=== PATIENT | male | born 1995 | race African-American/Black ===

== ENCOUNTER 2016-12-21 18:36 | Observation (INO) ==
[2016-12-21] MEDS ORDERED: ONDANSETRON 4 MG/2 ML VIAL IV STA (19:10)
[2016-12-21] MEDS ORDERED: HYDROmorphone 2 MG/1 ML VIAL IV STA (19:10)
[2016-12-21] MEDS ORDERED: ONDANSETRON 4 MG/2 ML VIAL ONE (19:12)
[2016-12-21] MEDS ORDERED: HYDROmorphone 2 MG/1 ML VIAL ONE (19:12)
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
[2016-12-21 20:54] LABS: Basophils % 0.2 % (0.0-0.8); Eosinophils # 0.2 10*3/uL (0.0-0.87); Eosinophils % 1.2 % (0.00-10.9); Hematocrit 40.9 VOL% (42.0-52.0); Hemoglobin 13.9 GM/DL (14.0-18.0); Immature Granulocytes % 0.5 %; Immature Granulocytes Absolute 0.06 #; Lymphocytes # 1.6 10*3/uL (1.4-4.0); Lymphocytes % 12.8 % (21.2-54.2); Mean Corpuscular Hemoglobin 30 PG (27-34); Mean Corpuscular Volume 86.8 FL (87-102); Mean Platelet Volume 10.5 FL (9.6-12.0); Monocytes # 0.7 10*3/uL (0.11-0.8); Monocytes % 5.9 % (1.7-12.7); Neutrophils # 9.8 10*3/uL (1.4-7.4); Neutrophils % 79.4 % (38.7-73.9); Platelet Count 169 T/CUMM (130-400); Red Blood Count 4.71 MC/CUMM (3.8-5.5); Red Cell Distribution Width 13.2 % (9.3-17.3); White Blood Count 12.4 T/CUMM (4-12)
[2016-12-21] MEDS ORDERED: ACETAMINOPHEN 325 MG TABLET PO PRN (21:00)
[2016-12-21] MEDS ORDERED: MORPHINE 2 MG/1 ML SYRINGE IV PRN (21:00)
[2016-12-21] MEDS ORDERED: ONDANSETRON 4 MG/2 ML VIAL IV PRN (21:00)
[2016-12-21 21:03] LABS: INR 1.1; PT Patient Result 11.6 SECS; Partial Thromboplastin Time 25.3 SECS (0-40)
[2016-12-21 21:08] LABS: Albumin 4.4 G/DL (3.4-5.0); Bilirubin,Total 0.5 MG/DL (0.2-1.0); Calcium 9.2 MG/DL (8.5-10.1); Potassium 3.6 MMOL/L (3.5-5.1); Total Protein 7.3 G/DL (6.4-8.3)
[2016-12-21 21:34] LABS: Apearance,Urine CLEAR (Clear); Bilirubin,Urine Negative (Negative); Blood, Urine Small mg/dL (Negative); Glucose,Urine (UA) Negative (Negative); Hyaline Casts,Urine 3 /LPF (0-3); Ketones,Urine 20 mg/dL (Negative); Mucus,Urine Occasional /LPF (Occasional); Nitrite,Urine Negative (Negative); Protein,Urine Negative; RBC,Urine 19 /HPF (0-4); Squamous Epithelial Cell,Urine Occasional /HPF (0-10); Urine Color Straw (Yellow); Urine Specific Gravity 1.038 (1.001-1.035); Urine Urobilinogen < 2.0 EU/DL (0.2-1.0)
[2016-12-21 21:47] LABS: Barbiturates Screen,Urine Negative (Negative); Benzodiazepines Screen,Urine Negative (Negative); Cannabinoid Screen,Urine Positive (Negative); Opiate Screen,Urine Positive (Negative); Phencyclidine Screen,Urine Negative (Negative)
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
[2016-12-22] MEDS ORDERED: DIAZEPAM 5 MG TABLET PO ONE (08:41)
[2016-12-22] MEDS ORDERED: FAMOTIDINE 20 MG TABLET PO ONE (08:41)
[2016-12-22] MEDS ORDERED: PANTOPRAZOLE 40 MG TABLET PO SCH (09:00)
[2016-12-22] MEDS ORDERED: LACTATED RINGERS 1,000 ML IV SCH (09:00)
[2016-12-22] MEDS: LACTATED RINGERS 1,000 ML IV SCH ×2 (09:57→10:07)
[2016-12-22] MEDS ORDERED: LIDOCAINE 2%/EPI 20 ML VIAL ONE (10:21)
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
[2016-12-22] MEDS ORDERED: ONDANSETRON 4 MG/2 ML VIAL ONE (10:38)
[2016-12-22] MEDS ORDERED: PROPOFOL 200 MG/20 ML VIAL IV ONE (10:38)
[2016-12-22] MEDS ORDERED: LIDOCAINE 2% 5 ML VIAL ONE (10:38)
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
[2016-12-22] MEDS ORDERED: MUPIROCIN 2% OINT 22 GM TUBE TOP ONE (11:04)
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
[2016-12-22] MEDS ORDERED: MIDAZOLAM 2 MG/2 ML VIAL ONE (11:24)
[2016-12-22] MEDS ORDERED: fentaNYL 100 MCG/2 ML VIAL ONE (11:25)
[2016-12-22 12:01] VITALS: BP 111/62
--- NOTE | 2016-12-22 14:33 | Anesthesia ---
Anesthesia Post OP - Post Ansesthetic Evaluation Patient seen in post op: Yes Resp: within normal limits CV: within normal limits Mental: within normal limits Temp: within normal limits [place]: within normal limits Nausea and Vomiting: within normal limits Pain: within normal limits
== END 2016-12-22 14:16 | disposition home or self-care (01) ==
LOC: EDBD → EDUNIT# → N.EDINP 18:36 → N.ED 18:36 → N.3E 21:36
PROVIDERS: ADMIT Surgery; ATTEND Surgery

== ENCOUNTER 2021-03-11 18:18 | Observation (INO) ==
[2021-03-11] MEDS ORDERED: SODIUM CHLORIDE 0.9% 1,000 ML IV STA (19:48)
[2021-03-11] MEDS ORDERED: ONDANSETRON 4 MG/2 ML VIAL IV STA (19:49)
[2021-03-11 20:26] LABS: Basophils % 0.3 % (0.0-0.8); Hematocrit 36.2 VOL% (42.0-52.0); Hemoglobin 12.3 GM/DL (14.0-18.0); Immature Granulocytes % 0.9 %; Immature Granulocytes Absolute 0.03 #; Lymphocytes # 0.7 10*3/uL (1.4-4.0); Lymphocytes % 21.1 % (21.2-54.2); Mean Corpuscular Volume 83.8 FL (87-102); Mean Platelet Volume 10.8 FL (9.6-12.0); Neutrophils % 75.7 % (38.7-73.9); Platelet Count 162 T/CUMM (130-400); Red Blood Count 4.32 MC/CUMM (3.8-5.5); Red Cell Distribution Width 13.3 % (9.3-17.3); White Blood Count 3.5 T/CUMM (4-12)
[2021-03-11 20:45] LABS: Albumin 3.4 G/DL (3.4-5.0); Bilirubin,Total 0.4 MG/DL (0.2-1.0); Calcium 8.6 MG/DL (8.5-10.1); Osmolality,Calculated 257.9 MOS/KG (273-304); Potassium 3.9 MMOL/L (3.5-5.1)
[2021-03-11] MEDS ORDERED: BISACODYL 5 MG TABLET PO PRN (23:04)
[2021-03-11] MEDS ORDERED: diphenhydrAMINE CAP 25 MG CAPSULE PO PRN (23:04)
[2021-03-11] MEDS ORDERED: DEXTROSE 50% 25 GM/50 ML VIAL IV PRN (23:04)
[2021-03-11] MEDS ORDERED: NICOTINE 21 MG/24 HR PATCH TRANSDERM PRN (23:04)
[2021-03-11] MEDS ORDERED: GLUCAGON 1 MG VIAL IM PRN (23:04)
[2021-03-11] MEDS ORDERED: ZALEPLON 5 MG CAPSULE PO PRN (23:04)
[2021-03-11] MEDS ORDERED: hydrALAZINE 20 MG/1 ML VIAL IV PRN (23:04)
[2021-03-11] MEDS ORDERED: guaiFENesin/DM ER 600-30 MG TABLET PO PRN (23:04)
[2021-03-12] MEDS: PIPERACILLIN/TAZOBACTAM 3,375 MG in SODIUM CHLORIDE 0.9% 100 ML IV SCH ×3 (00:35→15:48)
[2021-03-12] MEDS: SODIUM CHLORIDE 0.9% 1,000 ML IV SCH ×3 (00:35→22:26)
[2021-03-12] MEDS: ALBUTEROL 2.5 MG/3 ML NEB RESP TX SCH ×4 (01:39→20:18)
[2021-03-12] MEDS: ONDANSETRON 4 MG/2 ML VIAL IV PRN ×2 (04:10→22:12)
[2021-03-12 04:32] LABS: Basophils % 0.3 % (0.0-0.8); Hematocrit 33.9 VOL% (42.0-52.0); Hemoglobin 11.7 GM/DL (14.0-18.0); Immature Granulocytes % 0.6 %; Immature Granulocytes Absolute 0.02 #; Lymphocytes # 0.9 10*3/uL (1.4-4.0); Lymphocytes % 28.7 % (21.2-54.2); Mean Corpuscular HGB Conc 34.5 GM/DL (32-36); Mean Corpuscular Volume 83.7 FL (87-102); Monocytes % 3.7 % (1.7-12.7); Neutrophils % 66.7 % (38.7-73.9); Platelet Count 150 T/CUMM (130-400); Red Blood Count 4.05 MC/CUMM (3.8-5.5); Red Cell Distribution Width 13.2 % (9.3-17.3); White Blood Count 3.3 T/CUMM (4-12)
[2021-03-12 04:52] LABS: Albumin 3.1 G/DL (3.4-5.0); Bilirubin,Total 0.6 MG/DL (0.2-1.0); Calcium 8.3 MG/DL (8.5-10.1); Osmolality,Calculated 261.5 MOS/KG (273-304); Total Protein 6.4 G/DL (6.4-8.2)
[2021-03-12 05:34] LABS: Band Neutrophils 18 % (0-10); Hypochromasia 1+; Lymphocytes 27 % (20-55); Microcytosis 1+; Segmented Neutrophils 52 % (50-85); Total Cells Counted 100
[2021-03-12 05:35] LABS: Ovalocytes Slight; Platelet Estimate Adequate
[2021-03-12] MEDS: ACETAMINOPHEN 325 MG TABLET PO PRN (08:46)
[2021-03-12] MEDS: ENOXAPARIN 40 MG/0.4 ML SYRINGE SUBCUT SCH (08:47)
[2021-03-13] MEDS: ALBUTEROL 2.5 MG/3 ML NEB RESP TX SCH ×3 (00:56→15:26)
[2021-03-13] MEDS: PIPERACILLIN/TAZOBACTAM 3,375 MG in SODIUM CHLORIDE 0.9% 100 ML IV SCH ×2 (01:01→09:52)
[2021-03-13 04:56] LABS: Basophils % 0.3 % (0.0-0.8); Hematocrit 31.1 VOL% (42.0-52.0); Hemoglobin 10.9 GM/DL (14.0-18.0); Immature Granulocytes % 1.2 %; Immature Granulocytes Absolute 0.04 #; Lymphocytes # 0.9 10*3/uL (1.4-4.0); Lymphocytes % 28.5 % (21.2-54.2); Mean Corpuscular Volume 83.8 FL (87-102); Mean Platelet Volume 10.8 FL (9.6-12.0); Monocytes % 2.8 % (1.7-12.7); Neutrophils % 67.2 % (38.7-73.9); Platelet Count 121 T/CUMM (130-400); Red Blood Count 3.71 MC/CUMM (3.8-5.5); Red Cell Distribution Width 13.5 % (9.3-17.3); White Blood Count 3.2 T/CUMM (4-12)
[2021-03-13 05:21] LABS: Calcium 8.1 MG/DL (8.5-10.1); Osmolality,Calculated 262.4 MOS/KG (273-304); Potassium 3.6 MMOL/L (3.5-5.1)
[2021-03-13 05:41] LABS: Band Neutrophils 5 % (0-10); Lymphocytes 28 % (20-55); Segmented Neutrophils 64 % (50-85); Total Cells Counted 100
[2021-03-13 05:42] LABS: Platelet Estimate Normal
[2021-03-13] MEDS: SODIUM CHLORIDE 0.9% 1,000 ML IV SCH (06:30)
[2021-03-13] MEDS: ACETAMINOPHEN 325 MG TABLET PO PRN ×2 (08:00→14:09)
[2021-03-13] MEDS: ENOXAPARIN 40 MG/0.4 ML SYRINGE SUBCUT SCH (09:52)
[2021-03-13 11:36] VITALS: BP 115/68
[2021-03-15 11:43] LABS: EBV Nuclear Ag Antibody Positive (Negative); EBV Virus IgG Ab Positive (Negative); EBV Virus IgM Ab Negative (Negative)
== END 2021-03-13 16:49 | disposition home or self-care (01) ==
LOC: N.EDINP 18:18 → N.ED 18:18 → SUATTDRO 23:04 → N.4E 23:21
PROVIDERS: ADMIT Internal Medicine; ATTEND Student in an Organized Health Care Education/Training Program

== ENCOUNTER 2022-07-23 10:38 | Inpatient (IN) ==
[2022-07-23 12:24] LABS: Basophils # 0.1 10*3/uL (0.0-0.2); Basophils % 0.2 % (0.0-0.8); Hematocrit 27.9 VOL% (42.0-52.0); Hemoglobin 9.6 GM/DL (14.0-18.0); Immature Granulocytes Absolute 0.72 #; Lymphocytes # 2.3 10*3/uL (1.4-4.0); Lymphocytes % 6.4 % (21.2-54.2); Mean Corpuscular HGB Conc 34.4 GM/DL (32-36); Mean Corpuscular Volume 78.6 FL (87-102); Mean Platelet Volume 10.9 FL (9.6-12.0); Monocytes # 0.8 10*3/uL (0.11-0.8); Monocytes % 2.3 % (1.7-12.7); Neutrophils % 89.1 % (38.7-73.9); Platelet Count 290 T/CUMM (130-400); Red Blood Count 3.55 MC/CUMM (3.8-5.5); Red Cell Distribution Width 13.8 % (9.3-17.3); White Blood Count 35.5 T/CUMM (4-12)
[2022-07-23 12:36] LABS: PT Patient Result 11.4 SECS (10.1-12.1); Partial Thromboplastin Time 46.9 SECS (23.7-32.9)
[2022-07-23 12:48] LABS: Band Neutrophils 13 % (0-10); Lymphocytes 4 % (20-55); Platelet Estimate Normal; Total Cells Counted 100
[2022-07-23 12:49] LABS: Albumin 1.8 G/DL (3.4-5.0); Anisocytosis 1+; Bilirubin,Total 0.8 MG/DL (0.20-1.00); Calcium 8.1 MG/DL (8.5-10.1); Hypochromia Slight; Macrocytosis Slight; Osmolality,Calculated 291.1 MOS/KG (273-304); Potassium 3.9 MMOL/L (3.5-5.1); Total Protein 8.1 G/DL (6.4-8.2)
[2022-07-23] MEDS ORDERED: cefTRIAXone 1,000 MG in SODIUM CHLORIDE 0.9% 100 ML IV STA (13:01)
[2022-07-23] MEDS ORDERED: AZITHROMYCIN INJ 500 MG in SODIUM CHLORIDE 0.9% 250 ML IV STA (13:01)
[2022-07-23] MEDS ORDERED: LACTATED RINGERS 500 ML IV ONE (13:02)
[2022-07-23] MEDS ORDERED: ACETAMINOPHEN 325 MG TABLET PO ONE (13:50)
[2022-07-23] MEDS ORDERED: guaiFENesin/DM ER 600-30 MG TABLET PO PRN (13:55)
[2022-07-23] MEDS ORDERED: ONDANSETRON 4 MG/2 ML VIAL IV PRN (13:55)
[2022-07-23] MEDS ORDERED: MORPHINE 2 MG/1 ML SYRINGE IV PRN (13:55)
[2022-07-23] MEDS ORDERED: ACETAMINOPHEN 325 MG TABLET PO PRN (13:55)
[2022-07-23] MEDS ORDERED: ALBUTEROL 2.5 MG/3 ML NEB RESP TX PRN (13:55)
[2022-07-23] MEDS ORDERED: LACTATED RINGERS 1,500 ML IV ONE (13:57)
[2022-07-23] MEDS ORDERED: AZITHROMYCIN INJ 500 MG in SODIUM CHLORIDE 0.9% 250 ML IV SCH (14:00)
[2022-07-23] MEDS ORDERED: LORazepam 2 MG/1 ML VIAL IV PRN (14:34)
[2022-07-23 15:24] LABS: Bacteria,Urine Occasional /HPF (Few); Bilirubin,Urine Negative (Negative); Blood, Urine Large mg/dL (Negative); Glucose,Urine (UA) Negative (Negative); Granular Casts,Urine 4 /LPF (0-1); Hyaline Casts,Urine 12 /LPF (0-3); Ketones,Urine Negative (Negative); Mucus,Urine Occasional /LPF (Occasional); Nitrite,Urine Negative (Negative); Protein,Urine 100 mg/dL (Negative); RBC,Urine 284 /HPF (0-4); Squamous Epithelial Cell,Urine Occasional /HPF (0-10); Urine Appearance CLOUDY (Clear); Urine Color Amber (Yellow); Urine Specific Gravity 1.012 (1.001-1.035); Urine Urobilinogen < 2.0 eU/dL (<2.0)
[2022-07-23] MEDS: CEFEPIME 1,000 MG in SODIUM CHLORIDE 0.9% 100 ML IV SCH (16:13)
[2022-07-23] MEDS: SODIUM CHLORIDE 0.9% 1,000 ML IV SCH ×2 (16:13→22:54)
[2022-07-23] MEDS ORDERED: INFLUENZA VIRUS VACCINE 0.5 ML SYRINGE IM ONE (21:00)
[2022-07-23] MEDS: ENOXAPARIN 30 MG/0.3 ML SYRINGE SUBCUT SCH (22:17)
[2022-07-24] MEDS: CEFEPIME 1,000 MG in SODIUM CHLORIDE 0.9% 100 ML IV SCH ×2 (04:50→20:34)
[2022-07-24] MEDS: SODIUM CHLORIDE 0.9% 1,000 ML IV SCH ×3 (05:08→16:31)
[2022-07-24 05:29] LABS: Basophils # 0.1 10*3/uL (0.0-0.2); Basophils % 0.2 % (0.0-0.8); Eosinophils % 0.1 % (0.00-10.9); Hematocrit 24.6 VOL% (42.0-52.0); Hemoglobin 8.4 GM/DL (14.0-18.0); Immature Granulocytes % 4.4 %; Lymphocytes # 2.3 10*3/uL (1.4-4.0); Lymphocytes % 6.8 % (21.2-54.2); Mean Corpuscular HGB Conc 34.1 GM/DL (32-36); Mean Corpuscular Volume 78.6 FL (87-102); Mean Platelet Volume 10.8 FL (9.6-12.0); Monocytes # 0.7 10*3/uL (0.11-0.8); Monocytes % 2.1 % (1.7-12.7); Neutrophils % 86.4 % (38.7-73.9); Platelet Count 275 T/CUMM (130-400); Red Blood Count 3.13 MC/CUMM (3.8-5.5); Red Cell Distribution Width 13.7 % (9.3-17.3); White Blood Count 34.4 T/CUMM (4-12)
[2022-07-24 05:55] LABS: Albumin 1.3 G/DL (3.4-5.0); Bilirubin,Total 0.7 MG/DL (0.20-1.00); Calcium 7.7 MG/DL (8.5-10.1); Osmolality,Calculated 300.2 MOS/KG (273-304); Potassium 3.8 MMOL/L (3.5-5.1)
[2022-07-24 06:04] LABS: Band Neutrophils 1 % (0-10); Hypochromia Slight; Lymphocytes 3 % (20-55); Microcytosis Slight; Platelet Estimate Adequate; Total Cells Counted 100
[2022-07-24 06:30] LABS: Hepatitis B Surface Ab Result Non-Reactive (NonReactive); Hepatitis B Surface Ag Quant < 0.10 Index; Hepatitis B Surface Ag Result Non-Reactive (NonReactive); Hepatitis C Virus Ab Quant 0.15 Index; Hepatitis C Virus Ab Result Non-Reactive (NonReactive)
[2022-07-24] MEDS: PANTOPRAZOLE 40 MG TABLET PO SCH (09:33)
[2022-07-24] MEDS: AZITHROMYCIN INJ 500 MG in SODIUM CHLORIDE 0.9% 250 ML IV SCH (09:36)
[2022-07-24] MEDS: ENOXAPARIN 30 MG/0.3 ML SYRINGE SUBCUT SCH (20:33)
[2022-07-25 04:06] LABS: Basophils # 0.1 10*3/uL (0.0-0.2); Basophils % 0.2 % (0.0-0.8); Eosinophils # 0.2 10*3/uL (0.0-0.87); Eosinophils % 0.6 % (0.00-10.9); Hematocrit 23.3 VOL% (42.0-52.0); Immature Granulocytes % 4.2 %; Immature Granulocytes Absolute 1.15 #; Lymphocytes % 7.3 % (21.2-54.2); Mean Corpuscular HGB Conc 34.3 GM/DL (32-36); Mean Corpuscular Volume 79.5 FL (87-102); Mean Platelet Volume 10.5 FL (9.6-12.0); Monocytes # 0.9 10*3/uL (0.11-0.8); Monocytes % 3.3 % (1.7-12.7); Neutrophils % 84.4 % (38.7-73.9); Platelet Count 271 T/CUMM (130-400); Red Blood Count 2.93 MC/CUMM (3.8-5.5); Red Cell Distribution Width 14.1 % (9.3-17.3); White Blood Count 27.6 T/CUMM (4-12)
[2022-07-25 04:27] LABS: Albumin 1.3 G/DL (3.4-5.0); Bilirubin,Total 0.4 MG/DL (0.20-1.00); Calcium 7.7 MG/DL (8.5-10.1); Osmolality,Calculated 303.7 MOS/KG (273-304); Potassium 3.6 MMOL/L (3.5-5.1); Total Protein 6.9 G/DL (6.4-8.2)
[2022-07-25 04:37] LABS: Band Neutrophils 1 % (0-10); Eosinophils 1 % (0-10); Hypochromia Slight; Lymphocytes 4 % (20-55); Microcytosis Slight; Platelet Estimate Adequate; Total Cells Counted 100
[2022-07-25] MEDS: SODIUM CHLORIDE 0.9% 1,000 ML IV SCH ×4 (05:14→22:37)
[2022-07-25] MEDS: PANTOPRAZOLE 40 MG TABLET PO SCH (08:58)
[2022-07-25] MEDS: CEFEPIME 1,000 MG in SODIUM CHLORIDE 0.9% 100 ML IV SCH ×2 (08:58→16:27)
[2022-07-25] MEDS: AZITHROMYCIN INJ 500 MG in SODIUM CHLORIDE 0.9% 250 ML IV SCH (12:08)
[2022-07-25] MEDS ORDERED: BENZONATATE 100 MG CAPSULE PO PRN (16:48)
[2022-07-25] MEDS: methylPREDNISolone SOD SUC 40 MG/1 ML VIAL IV SCH (17:28)
[2022-07-25] MEDS: ALBUTEROL 1.25 MG/3 ML NEB RESP TX SCH ×3 (18:17→23:10)
[2022-07-25] MEDS ORDERED: VANCOMYCIN INJ 1,000 MG in SODIUM CHLORIDE 0.9% 250 ML IV SCH (19:30)
[2022-07-25] MEDS: ENOXAPARIN 40 MG/0.4 ML SYRINGE SUBCUT SCH (20:19)
[2022-07-26] MEDS: CEFEPIME 1,000 MG in SODIUM CHLORIDE 0.9% 100 ML IV SCH ×3 (01:25→16:19)
[2022-07-26] MEDS: methylPREDNISolone SOD SUC 40 MG/1 ML VIAL IV SCH ×3 (01:25→16:19)
[2022-07-26] MEDS: ALBUTEROL 1.25 MG/3 ML NEB RESP TX SCH ×6 (02:10→23:34)
[2022-07-26] MEDS: SODIUM CHLORIDE 0.9% 1,000 ML IV SCH (07:00)
[2022-07-26 07:06] LABS: Basophils % 0.1 % (0.0-0.8); Hematocrit 27.9 VOL% (42.0-52.0); Hemoglobin 9.2 GM/DL (14.0-18.0); Immature Granulocytes % 3.8 %; Immature Granulocytes Absolute 0.61 #; Lymphocytes # 1.4 10*3/uL (1.4-4.0); Lymphocytes % 8.5 % (21.2-54.2); Mean Corpuscular Volume 81.1 FL (87-102); Mean Platelet Volume 10.7 FL (9.6-12.0); Monocytes # 0.2 10*3/uL (0.11-0.8); Monocytes % 1.3 % (1.7-12.7); Neutrophils % 86.3 % (38.7-73.9); Platelet Count 319 T/CUMM (130-400); Red Blood Count 3.44 MC/CUMM (3.8-5.5); Red Cell Distribution Width 14.6 % (9.3-17.3)
[2022-07-26 07:17] LABS: Calcium 7.9 MG/DL (8.5-10.1); Osmolality,Calculated 301.3 MOS/KG (273-304); Potassium 4.5 MMOL/L (3.5-5.1)
[2022-07-26 07:19] LABS: Alanine Aminotransferase 42 U/L (16-61); Albumin 1.5 G/DL (3.4-5.0); Alkaline Phosphatase 102 U/L (45-117); Aspartate Amino Transferase 72 U/L (0-37); Bilirubin,Total < 0.39 MG/DL (0.20-1.00); Blood Urea Nitrogen 73 MG/DL (7-18); Calcium 8.3 MG/DL (8.5-10.1); Carbon Dioxide 21 MMOL/L (21-32); Chloride 111 MMOL/L (98-107); Glucose 143 MG/DL (74-106); Osmolality,Calculated 300.5 MOS/KG (273-304); Potassium 4.4 MMOL/L (3.5-5.1); Sodium 139 MMOL/L (136-145)
[2022-07-26 07:29] LABS: Hypochromia Slight; Lymphocytes 4 % (20-55); Microcytosis Slight; Platelet Estimate Adequate; Total Cells Counted 100
[2022-07-26 08:11] LABS: Hepatitis B Core IgM Quant 0.15 Index; Hepatitis B Surface Ag Quant < 0.10 Index; Hepatitis B Surface Ag Result Non-Reactive (NonReactive); Hepatitis C Virus Ab Result Non-Reactive (NonReactive)
[2022-07-26] MEDS: AZITHROMYCIN INJ 500 MG in SODIUM CHLORIDE 0.9% 250 ML IV SCH (08:44)
[2022-07-26] MEDS: PANTOPRAZOLE 40 MG TABLET PO SCH (08:46)
[2022-07-26 09:45] LABS: % Iron Saturation 45.5 % (18-50)
[2022-07-26 15:54] LABS: Barbiturates Screen,Urine Negative (Negative); Benzodiazepines Screen,Urine Negative (Negative); Cannabinoid Screen,Urine Negative (Negative); Opiate Screen,Urine Negative (Negative); Phencyclidine Screen,Urine Negative (Negative)
[2022-07-26] MEDS: ENOXAPARIN 40 MG/0.4 ML SYRINGE SUBCUT SCH (20:26)
[2022-07-27] MEDS: SODIUM CHLORIDE 0.9% 1,000 ML IV SCH ×2 (00:35→09:26)
[2022-07-27] MEDS: CEFEPIME 1,000 MG in SODIUM CHLORIDE 0.9% 100 ML IV SCH ×2 (01:25→08:54)
[2022-07-27] MEDS: methylPREDNISolone SOD SUC 40 MG/1 ML VIAL IV SCH ×2 (01:26→08:55)
[2022-07-27] MEDS: ALBUTEROL 1.25 MG/3 ML NEB RESP TX SCH ×3 (03:35→12:22)
[2022-07-27 05:12] LABS: Basophils % 0.1 % (0.0-0.8); Hematocrit 24.4 VOL% (42.0-52.0); Hemoglobin 8.1 GM/DL (14.0-18.0); Immature Granulocytes % 4.4 %; Immature Granulocytes Absolute 0.66 #; Lymphocytes # 1.8 10*3/uL (1.4-4.0); Lymphocytes % 11.9 % (21.2-54.2); Mean Corpuscular HGB Conc 33.2 GM/DL (32-36); Mean Corpuscular Volume 82.4 FL (87-102); Mean Platelet Volume 10.1 FL (9.6-12.0); Monocytes # 0.5 10*3/uL (0.11-0.8); Monocytes % 3.3 % (1.7-12.7); Neutrophils % 80.3 % (38.7-73.9); Platelet Count 290 T/CUMM (130-400); Red Blood Count 2.96 MC/CUMM (3.8-5.5); Red Cell Distribution Width 14.6 % (9.3-17.3); White Blood Count 15.1 T/CUMM (4-12)
[2022-07-27 05:32] LABS: Alanine Aminotransferase 38 U/L (16-61); Albumin 1.5 G/DL (3.4-5.0); Alkaline Phosphatase 81 U/L (45-117); Aspartate Amino Transferase 55 U/L (0-37); Bilirubin,Total < 0.39 MG/DL (0.20-1.00); Blood Urea Nitrogen 63 MG/DL (7-18); Carbon Dioxide 20 MMOL/L (21-32); Chloride 112 MMOL/L (98-107); Glucose 139 MG/DL (74-106); Osmolality,Calculated 296.5 MOS/KG (273-304); Potassium 4.6 MMOL/L (3.5-5.1); Sodium 139 MMOL/L (136-145); Total Protein 6.7 G/DL (6.4-8.2)
[2022-07-27 05:39] LABS: Band Neutrophils 1 % (0-10); Hypochromia 1+; Lymphocytes 11 % (20-55); Metamyelocytes 1 %; Myelocytes 1 %; Target Cells Slight; Total Cells Counted 100
[2022-07-27 05:40] LABS: Calcium 7.8 MG/DL (8.5-10.1); Microcytosis Slight; Osmolality,Calculated 299.3 MOS/KG (273-304); Ovalocytes Slight; Polychromasia Slight; Potassium 4.6 MMOL/L (3.5-5.1)
[2022-07-27] MEDS: PANTOPRAZOLE 40 MG TABLET PO SCH (08:55)
[2022-07-27] MEDS: AZITHROMYCIN INJ 500 MG in SODIUM CHLORIDE 0.9% 250 ML IV SCH (09:26)
[2022-07-27] MEDS ORDERED: CEFUROXIME 500 MG TABLET PO SCH (11:00)
[2022-07-27 12:14] VITALS: BP 132/97
[2022-07-27 14:26] LABS: Toxoplasma IgG Value < 3 IU/mL
[2022-07-27 22:31] LABS: % CD4 (T Cells) 9 % (32-64); % CD8 (T Cells) 68 % (18-40); 4/8 Ratio 0.1 (>=0.9)
[2022-07-28 12:11] LABS: CMV DNA Detect/Quant, P Undetected IU/mL (Undetected)
[2022-07-28 14:31] LABS: Fungitell Quantitative Value 45 pg/mL (<60 pg/mL)
[2022-07-28 21:36] LABS: Pneumocystis jiroveci Result Negative (Negative); Pneumocystis jiroveci Source SPUTUM
[2022-07-29 19:46] LABS: M. Tuberculosis PCR Result Negative (Negative); M. Tuberculosis PCR Source SPUTUM
[2022-07-31 10:21] LABS: % CD16+CD56 (NK cells) 1 % (3-28); % CD19 (B Cells) 25 % (8-24); % CD4 (T Cells) 9 % (32-64); 4/8 Ratio 0.1 (>=0.9); CD16+CD56 (NK cells) 8 cells/mcL (59-513); CD19 (B Cells) 240 cells/mcL (91-409)
== END 2022-07-27 14:35 | disposition home or self-care (01) | DRG 975 ==
LOC: SUATTDRO → N.ED 10:38 → SUATTDRO 13:53 → N.EDINP 13:53 → N.5E 18:04
PROVIDERS: ADMIT Emergency Medicine; ATTEND Internal Medicine